=== PATIENT | female | born 1930 | race Asian ===

== ENCOUNTER → 2016-06-20 | Outpatient (CLI) | payer OTHER | END | disposition home or self-care (01) | LOC: RADPV 09:36 | PROVIDERS: ATTEND Internal Medicine Nephrology | DX: N18.9 Chronic kidney disease, unspecified (principal); N28.1 Cyst of kidney, acquired; R94.111 Abnormal electroretinogram [ERG]; N26.1 Atrophy of kidney (terminal) | CPT/HCPCS: 76770 ==